=== PATIENT | male | born 2000 | race Caucasian/White ===

== ENCOUNTER 2022-09-03 20:44 | Emergency (ER) | payer MEDICAID ==
[~2022-09-03] VITALS: Ht 177.8 cm; Wt 66.8 kg
[2022-09-03 21:33] VITALS: BP 133/83
== END 2022-09-03 22:15 | disposition home or self-care (01) ==
LOC: ER 20:44
DX: H90.42 Sensorineural hearing loss, unilateral, left ear, with unrestricted hearing on the contralateral side (principal); H93.12 Tinnitus, left ear; R20.2 Paresthesia of skin
CPT/HCPCS: 99281